=== PATIENT | male | born 1995 | race Hispanic/Latino ===

== ENCOUNTER 2021-04-17 20:54 | Emergency (ER) | payer SELFPAY ==
[2021-04-17] MEDS ORDERED: Ketorolac Tromethamine 30 MG/ML VIAL ONE (22:22)
[2021-04-17] MEDS ORDERED: Clindamycin/D5W 600 mg/50 ml Premix Bag ONE (22:22)
[2021-04-17] MEDS ORDERED: Lidocaine 1% (PF) 30 ML VIAL ONE (22:27)
[2021-04-17] MEDS ORDERED: Dexamethasone 10 MG/ML VIAL ONE (22:27)
[2021-04-17 22:48] LABS: #Lymphocytes 2.7 thou/uL (1.20-3.40); #Monocytes 1.6 thou/uL (0.11-0.59); #Neutrophils 11.8 thou/uL (1.40-6.50); %Basophils 0.2 % (0.0-1.0); %Eosinophils 0.2 % (0.0-10.0); %Lymphocytes 16.6 % (21.0-51.0); %Monocytes 9.9 % (0.0-10.0); %Neutrophils 73.1 % (42.0-75.0); Hemoglobin 15.6 g/dL (14.0-18.0); Mean Corpuscular HGB CONC 34.2 g/dL (32.0-36.0); Mean Corpuscular Hemoglobin 30.5 pg (27.0-31.0); Mean Platelet Volume 7.6 fL (7.4-10.4); Platelet Count 288 thou/uL (130-400); RBC Distribution Width 11.4 % (11.5-14.5); Red Blood Cell (RBC) Count 5.11 mill/uL (4.70-6.10); White Blood Cell (WBC) Count 16.2 thou/uL (4.8-10.8)
[2021-04-17 23:08] LABS: ALT (SGPT) 107 U/L (8-55); AST (SGOT) 36 U/L (5-34); Albumin 4.6 g/dL (3.5-5.0); Alkaline Phosphatase 87 U/L (40-110); Anion Gap 15 mmol/L (10-20); BUN (Urea Nitrogen) 12 mg/dL (8.9-20.6); Bilirubin, Total 1.4 mg/dL (0.2-1.2); Calc. Creatinine Clearance 0 mL/min (70-130); Carbon Dioxide 21 mmol/L (22-29); Chloride 104 mmol/L (98-107); Globulin 3.8 g/dL (2.4-3.5); Glucose 101 mg/dL (70-105); Protein, Total 8.4 g/dL (6.0-8.3); Sodium 136 mmol/L (136-145)
== END 2021-04-17 23:57 | disposition home or self-care (01) ==
LOC: ERS 20:54
DX: J36 Peritonsillar abscess (principal)
CPT/HCPCS: 42700; 80053; 83605; 85025; 87081; 87430; 96365; 96375; J1100; J1885; J2001; J3490